=== PATIENT | male | born 1970 ===

== ENCOUNTER → 2017-12-07 07:04 | Outpatient (CLI) | payer OTHER, SELFPAY ==
[2017-12-07 08:44] LABS: Alanine Aminotransferase 27 IU/L (21-72); Albumin 4.6 g/dL (3.5-5.0); Albumin Globulin Ratio 2.2 (1.0-2.8); Alkaline Phosphatase 56 U/L (38-126); Aspartate Aminotransferase 19 IU/L (17-59); BUN Creatinine Ratio 22.2 (6-22); Blood Urea Nitrogen 20 mg/dL (9-20); Calcium 9.3 mg/dL (8.4-10.2); Carbon Dioxide 29 mmol/L (22-32); Chloride 101 mmol/L (98-107); Cholesterol 137 mg/dL (140-199); Estimated Glomerular Filt Rate > 60.0 mL/min (>60); Globulin 2.1 g/dL (1.7-4.1); Glucose 80 mg/dL (70-100); HDL Cholesterol 49 mg/dL (40-60); HEMOLYSIS < 15 (0-50); LDL Cholesterol Calculated 77 mg/dL (<100); Potassium 4.3 mmol/L (3.4-5.1); Sodium 143 mmol/L (137-145); Total Protein 6.7 g/dL (6.3-8.2); Triglycerides 53 mg/dL (35-150)
[2017-12-07 09:14] LABS: Prostate Specific Antigen Scrn 0.565 ng/mL (0.1-4.0)
== END ==
PROVIDERS: PCP Internal Medicine; Visit Provider Internal Medicine
DX: Z00.00 Encounter for general adult medical examination without abnormal findings (principal); Z12.5 Encounter for screening for malignant neoplasm of prostate
CPT/HCPCS: 36415; 80053; 80061; G0103

== ENCOUNTER 2019-04-09 10:37 | Day surgery (SDC) | payer OTHER, SELFPAY ==
[2019-04-09] VITALS (7 sets, daily range): BP systolic 117–137; BP diastolic 78–95; PULSE 74–90; RESP 12–20; TEMP 36.3–36.8; O2SAT 99; BMI 23.7
--- NOTE | 2019-04-09 | PATH_ITS ---
[facility] Accession Number: [id number] . 01 Material submitted: . colon - COLON POLYP AT 15 CM X2 . 02 Diagnosis: Colon, Polyp at 15 cm x2, Biopsies: Tubular adenomas. V 04/10/2019 0949 Local . 02 Electronically signed: . Emilie Lam MD, Pathologist NPI- [id number] . 01 Gross description: . COLON POLYP AT 15 CM X2: Received in formalin are 2 fragment(s) of dobson, soft tissue measuring 0.2 x 0.2 x 0.2 cm to 0.3 x 0.3 x 0.2 cm submitted entirely in 1 cassette(s) /DM 04/09/20192032 Local . 02 Pathologist provided ICD-10: D12.6 . 02 CPT . 082098 Performed at: 01 [facility] [address] [id number] MD Josse Max MD Phone: [phone] Performed at: 02 [facility] [address] [place], [place] [id number] MD Emilie Lam MD Phone: [phone]
[2019-04-09] MEDS: SODIUM CHLORIDE 0.9% 1,000 ML 200 ML IV ×2 (11:51→13:28)
--- NOTE | 2019-04-09 13:03 | PM.HP.1 ---
History of Present Illness History of Present Illness Date Patient Seen: 04/09/19 Time Patient Seen: 13:04 Chief complaint: [id number] Narrative: The patient is a gentleman here for a screening colonoscopy. His last exam was 7 years ago. His mother had colon cancer and thus his frequency of exam. He thinks he had a small polyp removed is last colonoscopy. Patient History Family & Social History Family History Mother Cancer Social History: household members spouse lives independently Yes caregiver/support person No Tobacco & Substance use: Smoking Status Never smoker alcohol intake current alcohol intake frequency a few times a month Substance Use Type does not use Meds Home Medications and Allergies Home Medications Medication Instructions Recorded Confirmed Type No Known Home Medications 12/15/17 04/09/19 History Allergies Allergy/AdvReac Type Severity Reaction Status Date / Time No Known Drug Allergies Allergy Verified 04/09/19 11:37 Review of Systems Review of Systems ROS: Yes All systems reviewed with the patient and are negative except as otherwise documented Eyes Comments: Wears glasses Exam Vital Signs (past 8 hours): - 04/09/19 11:38 Temperature 97.4 F L Pulse Rate 80 Respiratory Rate 16 Blood Pressure 129/87 Oxygen Delivery Method Room Air Narrative Exam Narrative: Pleasant cooperative patient no apparent distress. Lungs are clear to auscultation. No rales or rhonchi. Heart regular rate and rhythm no murmur gallop. Abdomen is soft nontender without mass. No obvious hernias. Patient is alert and oriented x3. Assessment & Plan Assessment & Plan narrative: The patient for a screening colonoscopy. I have discussed the procedure with them. Risks of bleeding, perforation which would necessitate major operation, failure to find remove all lesions, the potential tattoo were all discussed. All questions were answered. They wished to proceed.
--- NOTE | 2019-04-09 13:04 | PM.PREOP ---
Pre-operative Note Interval Note History & Physical reviewed/Exam performed by Physician: Yes Changes to H&P: No ASA Class (for procedural sedation): I
[2019-04-09] MEDS: fentaNYL 250 MCG/5 ML INJ IV (13:15)
[2019-04-09] MEDS: MIDAZOLAM 5 MG/5 ML VIAL IV (13:16)
[2019-04-09] MEDS: ATROPINE 1 MG/10 ML SYRINGE IV (13:28)
--- NOTE | 2019-04-09 13:42 | PM.OP.ENDO ---
Operative Date/Time/Diagnoses Date of procedure: 04/09/19 Time of procedure: 13:42 Pre-op diagnosis: Mother with colon cancer. His last colonoscopy was 7 years ago. Personal history of polyps Post-op diagnosis: same (Two rectal polyps) Procedure & Clinicians Study performed: Colonoscopy with cold biopsy Same procedure as scheduled: Yes Indications: Screening. Family history of cancer personal history of polyps Surgeon: Jesse Johnson Procedure Notes SCOAP/Timeout: Performed Procedure in detail: The patient was placed in the left lateral decubitus position and underwent IV sedation directed by the surgeon consisting of fentanyl and Versed. Digital exam was unremarkable. Prostate is normal. The scope was inserted and advanced through the rectum into the sigmoid, descending, transverse, and ascending colon. There was a small lesion in the rectum which I biopsied as I passed through it. It was completely removed.. The cecum was reached identified by the ileocecal valve and the appendiceal opening. The ileocecal valve was successfully cannulated. The terminal ileum was normal in appearance. The scope was gradually brought out. One other Polyp was found at the rectum not far from the 1st and it was removed with cold biopsy forceps as well. The scope ultimately was retroflexed in the rectum. The appearance was normal. The scope was removed and the patient tolerated the procedure well. The prep was excellent. During the procedure the patient became diaphoretic and mildly bradycardic. He was given atropine to counter act a presumed vasovagal response to discomfort. He did not become hypotensive and with the medication his pulses only roast to the mid 70s. His diaphoresis however ceased. Scope withdrawal time: Just over 6 minutes Sedation minutes: 29 Findings: polyp (Two small rectal polyps) Specimen(s): other (Polyps) Complications: none Post-procedure Recommendations: Colonscopy in 5 years (Consider having this done with deep sedation as a fairly large amount of sedatives were needed to keep him comfortable(350mcg fentanyl and 7mg versed)) Follow up: as needed Disposition: PACU
== END 2019-04-09 14:24 | disposition home or self-care (01) ==
PROVIDERS: PCP Internal Medicine; Referring Provider Specialist; Visit Provider Specialist
PROC: 0DJD8ZZ Inspection of Lower Intestinal Tract, Via Natural or Artificial Opening Endoscopic (ICD-10-PCS; CPT 45378; 2019-04-09 11:45)
DX: Z12.11 Encounter for screening for malignant neoplasm of colon (principal); Z80.0 Family history of malignant neoplasm of digestive organs; D12.8 Benign neoplasm of rectum
CPT/HCPCS: 45380; 99152; 99153; J0461; J2250; J3010

== ENCOUNTER → 2019-05-16 13:38 | Outpatient (CLI) | payer OTHER, SELFPAY ==
--- NOTE | 2019-05-16 13:39 | DI.US.S_ITS ---
PROCEDURE: US SCROTUM INDICATIONS: SCROTAL MASS TECHNIQUE: Real-time scanning was performed of the scrotum and testicles, with image documentation. Color and pulse Doppler interrogation was performed of both testicles. COMPARISON: None. FINDINGS: Right: Testicle is normal in size at 5.1 x 2.2 x 3.8 cm, and homogenous in echotexture. Multiple benign calcifications. Epididymis is normal in overall size and morphology. Small hydrocele. No varicocele. Overlying scrotal skin is normal in thickness. Left: Testicle is normal in size at 4.7 x 2.3 x 3.1 cm, and homogeneous in echotexture. Epididymis is normal in overall size and morphology. Small hydrocele. A varicocele is present. There is a probable cyst measuring 2.4 x 1.8 x 2.8 cm. Overlying scrotal skin is normal in thickness. Doppler: Color and pulse Doppler demonstrate normal and symmetric arterial flow in both testicles. IMPRESSION: 1. No testicular mass is present. 2. Left epididymal cyst measuring 2.8 cm in maximum diameter. 3. Left varicocele. 4. Small bilateral hydroceles. Dictated by: Cristian Molina M.D. on 05/16/2019 at 14:54 Approved by: Cristian Molina M.D. on 05/16/2019 at 14:56
== END ==
PROVIDERS: PCP Internal Medicine; Referring Provider Internal Medicine; Visit Provider Internal Medicine
DX: N50.3 Cyst of epididymis (principal); N43.3 Hydrocele, unspecified
CPT/HCPCS: 76870

== ENCOUNTER 2024-05-22 09:45 | Outpatient (RCR) | payer OTHER, SELFPAY ==
--- NOTE | 2023-12-28 08:43 | PT-OP ANOTE ---
This PT was originally scheduled to evaluate pt but apppointment was moved d/t PT's acute care schedule on Mondays. Pt now to see Michaelle as primary PT. On 12/28/23, Cata, orthopedic trauma nurse from [facility], calls and speaks with this PT. She clarifies orders: pt may be TTWB/TDWB LLE and she states that is touching the foot down but not WB through the leg. She clarifies that pt can forearm WB through platform walker on LUE that has distal radial fracture. She states all other questions should go to hand trauma unit at [facility] and this PT leaves phone number with pt info on Michaelle's desk. Finally, Cata clarifies the theraband/strengthening comment on the orders to mean that the pt should NOT do hip strengthening at this time but he can do knee strengthening.
--- NOTE | 2023-12-29 16:06 | PT-OP ANOTE ---
PT called and left message after waiting for >30 min on hold for clarification regarding hip strengthening per referral vs message left with PT Jacquelin, ROM limitations, and for a protocol or timeline for progression other than waitbearing limitations for 12 weeks. Clinic closed before 4, so picking machine operator left urgent message for office as PT will be evaluating pt on Monday morning. PT asked for call back from clinic. No traige line, must go through main line every time
--- NOTE | 2024-01-01 07:28 | PT-OP ANOTE ---
PT called and left message with oakes machine operator for hand clinic asking for clinic notes, x ray and protocol/restrictions for pt wrist in evaluation. Requesting call back and faxed notes.
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
--- NOTE | 2024-01-03 12:42 | PT-OP ANOTE ---
PT called trauma line again and spoke to hoop coiling machine operator Dwayne to leave messages again. For Dr. Denny, asked for clarification/timeline for ROM (PROM vs AROM), strengthening at hip/knee (clarify resistance ok at knee), timeline/protocol for ROM and strength, gait training with WB status intact and order for L platform walker and OT order for L wrist. Message also sent to Dr. Churchill hand specialist for clarification of WB on L hand/wrist, use of brace, platform vs rolling walker. asked for both fax and phone call to discuss or ask further questions
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
--- NOTE | 2024-01-16 15:24 | PT-OP ANOTE ---
PT called and left message with tube cleaning operator of ortho trauma clinic regarding most recent clinic notes and updated PT orders following pt 01/09 visit with referring provider. Clinic planning to call and/or fax information for pt
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
--- NOTE | 2024-02-19 07:24 | PT-OP ANOTE ---
PT called for WB progression and protocol following pt last appt with Dr. Denny on 02/14. Left message with messaging center
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
== END 2024-06-26 14:35 | disposition home or self-care (01) ==
LOC: PHYS 09:45
PROVIDERS: Family Provider Internal Medicine; PCP Internal Medicine; Referring Provider Orthopaedic Surgery Orthopaedic Trauma; Visit Provider Physician Assistant
DX: S52.512A Displaced fracture of left radial styloid process, initial encounter for closed fracture (principal); S32.512A Fracture of superior rim of left pubis, initial encounter for closed fracture; S32.432A Displaced fracture of anterior column [iliopubic] of left acetabulum, initial encounter for closed fracture; S32.442A Displaced fracture of posterior column [ilioischial] of left acetabulum, initial encounter for closed fracture; Z09 Encounter for follow-up examination after completed treatment for conditions other than malignant neoplasm; R53.1 Weakness; M25.652 Stiffness of left hip, not elsewhere classified; R27.8 Other lack of coordination
CPT/HCPCS: 97110; 97112; 97116; 97140; 97162; 97163; 97530; 97535